=== PATIENT | female | born 1955 | race Caucasian/White ===

== ENCOUNTER 2017-01-11 07:19 | Day surgery (SDC) | payer OTHER ==
[~2017-01-11] VITALS: Ht 154.9 cm; Wt 55.9 kg
[~2017-01-11 07:19] MED LIST: HYDR1TAB PO; LISI40TA PO; THYROID MED
[2017-01-11 08:36] VITALS: Ht 154.9 cm; Wt 55.9 kg
[2017-01-11 08:44] VITALS: BP 174/86; PULSE 58; RESP 24
[2017-01-11] MEDS ORDERED: MIDAZOLAM 1 MG/ML 2 ML INJ ONE ×2 (10:23)
[2017-01-11] MEDS ORDERED: FENTAnyl 50 MCG/ML VIAL ONE (10:23)
[2017-01-11 10:29] VITALS: BP 110/61; RESP 20
--- NOTE | 2017-01-11 12:05 | GILP ---
DATE OF PROCEDURE: PROCEDURE PERFORMED: Colonoscopy with biopsy. INDICATION: A 61-year-old female undergoing this procedure for surveillance for the colon cancer. She had a rectal cancer for which she had a chemo and radiation 3 to 4 years ago. INFORMED CONSENT: The risk of the procedure, related and unrelated complications, anesthetic sedati ve risks, alternatives discussed and informed consent was obtained. DESCRIPTION OF PROCEDURE: The patient was brought to the GI lab, sedated with Versed 3 mg, fentanyl 75 mg up to optimum sedation. After appropriate sedation, digital examination done through the stom a, which was normal. Pediatric colonoscope passed with much ease through the stoma into the transve rse colon. There was some diverticula just distal to the anastomotic site. Scope was advanced slow ly all the way into the cecum and finally into terminal ileum. The preparation was adequate. Howev er, small polyps can be missed. There was a scattered semi-solid stool at different angulations whi le coming out, mucosa thoroughly inspected, 2 polyps in the transverse colon were identified, both d iminutive. Successfully removed by cold biopsy forceps. There were diverticula also in the cecum. The rest of the colon appeared normal. IMPRESSION: 1. Diverticulosis, both near the stoma and also in the cecum. 2. Normal terminal ileum up to 2 feet. 3. Two diminutive polyps successfully removed by cold biopsy forceps. PLAN: Stay on high fiber diet. Will review the histopathology of the polyp. The patient will be f ollowed up in the office in 4 weeks. This information was given to the patient. Dictated By: ZAFAR HILARIO/CHRISTI Conf#: [id number] DID#: [id number]
== END 2017-01-11 11:59 | disposition home or self-care (01) ==
LOC: GIL 07:19
PROVIDERS: ATTEND Internal Medicine Gastroenterology
DX: Z12.11 Encounter for screening for malignant neoplasm of colon (principal); D12.3 Benign neoplasm of transverse colon; K57.90 Diverticulosis of intestine, part unspecified, without perforation or abscess without bleeding; Z85.048 Personal history of other malignant neoplasm of rectum, rectosigmoid junction, and anus
CPT/HCPCS: 45380; 88305; J2250; J3010; Z7610